=== PATIENT | female | born 1940 | race Caucasian/White ===

== ENCOUNTER 2017-03-03 19:15 | Inpatient (IN) | payer MEDICARE ==
[~2017-03-03] VITALS: Ht 177.8 cm; Wt 85.3 kg
[2017-03-03] MEDS ORDERED: LEVO500T90 PO (19:36)
[2017-03-03] MEDS ORDERED: ACET-2154 PO (19:36)
[2017-03-03] MEDS ORDERED: CHLO25CA22 PO (19:36)
[2017-03-03] MEDS ORDERED: METO25TA6 PO (19:36)
[2017-03-03] MEDS ORDERED: FLUO-120 PO (19:36)
[2017-03-03] MEDS ORDERED: LEVO88TA5 PO (19:36)
[2017-03-03] MEDS ORDERED: ARIP2TAB3 PO (19:36)
[2017-03-03] MEDS ORDERED: WARF2TAB6 PO (19:36)
[2017-03-03] MEDS ORDERED: ZOLP12.542 PO (19:36)
[2017-03-03] MEDS ORDERED: HYDR12.5 PO (19:36)
[2017-03-03] MEDS ORDERED: ATOR40TA PO (19:36)
--- NOTE | 2017-03-03 22:03 | NUR ---
Pt. admitted to GPS, under care of Dr. Rosa Belongs List completed
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
[2017-03-03 22:25] VITALS: BP 141/78
--- NOTE | 2017-03-04 07:22 | NUR ---
AVELINA FROM CRISIS TEAM CALLED TO [place] Pt. DR HUANG NOTIFIED Pt WANTED TO SIGN OUT AMA. ETA FOR CRISIS TEAM IS 60 MINUTES.
[2017-03-04 07:30] VITALS: BP 155/85
[2017-03-04 08:09] LABS: BASOPHILS % (AUTO) 0.5 % (0.0-2.0); EOSINOPHILS # (AUTO) 0.3 K/uL (0.0-0.7); EOSINOPHILS % (AUTO) 4.9 % (0.0-7.0); HEMOGLOBIN 13.4 G/DL (12.0-16.0); LYMPHOCYTES # (AUTO) 1.8 K/UL (0.8-4.8); LYMPHOCYTES % (AUTO) 35.3 % (20.5-51.5); MEAN CORPUSCULAR HEMOGLOBIN 30.7 UUG (27.0-31.0); MEAN CORPUSCULAR HGB CONC 34 g/dL (32.0-37.0); MEAN CORPUSCULAR VOLUME 89.7 FL (81.0-99.0); MONOCYTES # (AUTO) 0.4 K/UL (0.1-1.30); MONOCYTES % (AUTO) 7.8 % (0.0-11.0); NEUTROPHILS # (AUTO) 2.7 K/UL (1.8-8.9); NEUTROPHILS % (AUTO) 51.5 % (38.5-71.5); PLATELET COUNT (AUTO) 318 K/UL (150-450); RED BLOOD CELL COUNT(AUTO) 4.35 MIL/UL (4.2-5.4); WHITE BLOOD COUNT (AUTO) 5.2 K/UL (4.0-11.2)
[2017-03-04 09:09] LABS: THYROID STIMULATING HORMONE 4.959 mIU/mL (0.358-3.740)
[2017-03-04 09:55] LABS: ALANINE AMINOTRANSFERASE 30 U/L (14-59); ALKALINE PHOSPHATASE 71 U/L (50-136); ASPARTATE AMINOTRANSFERASE 20 U/L (15-37); BILIRUBIN,TOTAL 0.3 mg/dL (0.2-1.0); CARBON DIOXIDE 23 mmol/L (21-32); CHLORIDE 109 mmol/L (98-107); CHOLESTEROL 149 mg/dL (<200); GLUCOSE 100 mg/dL (74-106); HDL CHOLESTEROL 48 mg/dL (40-60); TOTAL PROTEIN, SERUM 7.6 g/dL (6.4-8.2); TRIGLYCERIDES 113 MG/DL (30-150); UREA NITROGEN, BLOOD 16 mg/dL (7-18)
[2017-03-04 14:57] LABS: *BILIRUBIN,URIN NEGATIVE (NEGATIVE); *BLOOD, URINE NEGATIVE (NEGATIVE); *CLARITY,URINE CLEAR (CLEAR); *COLOR,URINE YELLOW (YELLOW); *KETONES,URINE NEGATIVE (NEGATIVE); *PROTEIN,URINE NEGATIVE (NEGATIVE); *UROBILINOGEN,URINE 0.2 E.U./dl (NORMAL); LEUKOCYTE ESTERASE ,URINE TRACE (NEGATIVE); NITRITE, URINE NEGATIVE (NEGATIVE); UGLUCOSE NEGATIVE (NEGATIVE)
[2017-03-04 15:20] LABS: BACTERIA,URINE FEW /HPF (NONE SEEN); RBC,URINE 0-3 /HPF (0-3); SQUAMOUS EPITHELIAL CELL,UR FEW /HPF (NONE SEEN)
[2017-03-04 15:39] VITALS: BP 117/79
[2017-03-04 20:06] VITALS: BP 145/82
[2017-03-05 07:30] VITALS: BP 112/71
[2017-03-05 15:30] VITALS: BP 119/62
[2017-03-05 20:08] VITALS: BP 136/80
--- NOTE | 2017-03-05 22:00 | NUR ---
received to care, lying in bed, isolative, but pleasant upon approach. compliant with medications, and staff direction. PRN restoril given at 2125, for insomnia. as of 2199, she appears to be asleep. no distress noted. will continue to monitor closely.
--- NOTE | 2017-03-06 06:00 | NUR ---
slept 8.25 hours, total. continues to sleep. no distress noted.
[2017-03-06 07:30] VITALS: BP 133/76
[2017-03-06 07:45] LABS: BASOPHILS # (AUTO) 0.1 K/uL (0.0-8.0); EOSINOPHILS # (AUTO) 0.2 K/uL (0.0-0.7); EOSINOPHILS % (AUTO) 3.1 % (0.0-7.0); HEMATOCRIT 39.1 % (31.2-41.9); HEMOGLOBIN 13.5 g/dL (10.9-14.3); LYMPHOCYTES # (AUTO) 1.6 K/uL (20.0-40.0); LYMPHOCYTES % (AUTO) 31.4 % (20.5-51.5); MEAN CORPUSCULAR HEMOGLOBIN 31.5 uug (24.7-32.8); MEAN CORPUSCULAR HGB CONC 35 g/dL (32.3-35.6); MEAN CORPUSCULAR VOLUME 91.1 fL (75.5-95.3); MONOCYTES # (AUTO) 0.4 K/uL (2.0-10.0); MONOCYTES % (AUTO) 7.3 % (0.0-11.0); NEUTROPHILS # (AUTO) 2.9 K/uL (1.8-8.9); NEUTROPHILS % (AUTO) 57.2 % (38.5-71.5); PLATELET COUNT (AUTO) 297 K/uL (179-408)
[2017-03-06 08:26] LABS: THYROID STIMULATING HORMONE 4.802 mIU/mL (0.358-3.740)
[2017-03-06 08:36] LABS: ALANINE AMINOTRANSFERASE 53 U/L (14-59); ALKALINE PHOSPHATASE 73 U/L (50-136); ASPARTATE AMINOTRANSFERASE 48 U/L (15-37); BILIRUBIN,TOTAL 0.5 mg/dL (0.2-1.0); CARBON DIOXIDE 31 mmol/L (21-32); CHLORIDE 105 mmol/L (98-107); CREATININE 1.1 mg/dL (0.6-1.3); GLUCOSE 95 mg/dL (74-106); PHOSPHOROUS 3.3 mg/dL (2.5-4.9); TOTAL PROTEIN, SERUM 7.3 g/dL (6.4-8.2); UREA NITROGEN, BLOOD 16 mg/dL (7-18)
--- NOTE | 2017-03-06 12:31 | NUR ---
Initial DC Plan: Patient arrived from home [[address] [place] [address], [place] [address]; [phone]] and stated she would like to return upon discharge. Patient's daughter/DPOA of finances [[phone]] stated she would like patient to go to a assisted living facility. However, patient's daughter stated she will follow patient's wishes. SW will contact assisted living facilities to have as an option. SW will follow up with MD, patient, and patient's daughter to discuss most appropriate discharge plans. SW will form a safe and proper discharge.
[2017-03-06 15:15] VITALS: BP 126/75
--- NOTE | 2017-03-06 15:54 | NUR ---
DC Planning Note: TRISTIN faxed placement inquiries to [facility] [[phone]], [place] [[phone]], and [facility] [[phone]]. TRISTIN will follow up with facilities regarding inquiries.
--- NOTE | 2017-03-06 16:04 | NUR ---
1500: FOUND PT IN BATHROOM IN A SITTING POSITION NEXT TO THE TOILET. PT STATED THAT SHE WAS SLIDING FROM THE TOILET BECAUSE THE TOILET IS TOO SHORT. ASSISTED BACK TO THE BED. VS TAKEN 126/75, 97.4, 69,18, 98%. NO C/O PAIN OR DISCOMFORT. NO BRUISES, NO ABRASION, OR SCRATCHES. DENIES ANY HEAD INJURY. QA SOFTWARE TESTER PRAVEEN NOTIFIED WITH NO NEW ORDERS. WILL CONTINUE TO MONITOR.
[2017-03-06 20:24] VITALS: BP 98/47
[2017-03-06 20:35] VITALS: BP 101/59
[2017-03-06 21:30] VITALS: BP 136/72
--- NOTE | 2017-03-06 22:00 | NUR ---
received to care, lying in bed, isolative, but pleasant upon approach. compliant with medications and staff direction. PRN restoril given at 2135, for insomnia. as of 2199, she remains awake, but appears to be falling asleep. no distress noted. will continue to monitor closely.
--- NOTE | 2017-03-06 22:30 | NUR ---
appears to be asleep.
--- NOTE | 2017-03-07 02:00 | NUR ---
pt was found on the floor, next to the toilet. she stated that she was trying to get to the toilet, but did not make it in time, and slipped on her urine, on the floor. she was found sitting on her buttocks. she denied any pain or injury. full body check was done, and no injury was noted. pt was assisted to the toilet, then back to bed, with bed alarm on. will continue to monitor closely. Addendum: 03/07/17 at 0215 by SANCHEZ SIMPSON LVN vital signs 127/70, hr 61, resp 18, temp 98.0, sa os 95%
[2017-03-07 02:10] VITALS: BP 127/70
--- NOTE | 2017-03-07 06:00 | NUR ---
slept 8.0 hours, total. continues to sleep. no distress noted.
[2017-03-07 07:30] VITALS: BP 124/69
[2017-03-07 16:00] VITALS: BP 144/81
[2017-03-07 19:45] VITALS: BP 130/75
[2017-03-07 20:00] VITALS: BP 112/81
--- NOTE | 2017-03-07 22:00 | NUR ---
received to care, lying in bed, isolative, but pleasant upon approach. 1:1 sitter remains at side, for safety. compliant with medications and staff direction. as of 0, she appears to be asleep. no distress noted. will continue to monitor closely.
--- NOTE | 2017-03-08 06:00 | NUR ---
slept 8.75 hours, total. continues to sleep. no distress noted. sitter remains at side, for safety.
[2017-03-08 07:30] VITALS: BP 138/68
[2017-03-08 09:20] VITALS: BP 138/68
--- NOTE | 2017-03-08 10:37 | NUR ---
DC Note: Patient will be discharged to [facility] [[address] [place] [address]; [phone]] via ambulance at 1pm. SW spoke with CJ at [facility] to confirm discharge plans. Patient is aware and agreeable to discharge plans. Patient's daughter Kaity Woodson [[phone]] is aware and agreeable to discharge plans. Patient will follow up Dr. Chacon (New Car Get Ready Mechanic) and Dr. Garcia (Psychiatrist). Patient was provided a brief substance abuse intervention and was provided referrals for [facility] [ ], [facility] [ ], and [facility] [ ].
--- NOTE | 2017-03-08 13:53 | NUR ---
Pt D/C to [facility] by ambulance. Pt D/C with all belongings, POMS, prescriptions, and Exit care information packet. Pt is calm, cooperative, v/s stable,skin intact, AOx3, denies suicidal ideation. Pt contracted for safety inside and outside of the hospital. Report was given to Staff Hue at [facility].
== END 2017-03-08 14:30 | DRG 885 ==
LOC: ER 19:15 → GPS 21:58
PROVIDERS: ADMIT Psychiatry & Neurology Psychiatry; ATTEND Internal Medicine
DX: F31.9 Bipolar disorder, unspecified (principal); E88.09 Other disorders of plasma-protein metabolism, not elsewhere classified; I48.2 Chronic atrial fibrillation; N39.0 Urinary tract infection, site not specified; F31.30 Bipolar disorder, current episode depressed, mild or moderate severity, unspecified; Z79.899 Other long term (current) drug therapy; T14.90XS Injury, unspecified, sequela; Z79.01 Long term (current) use of anticoagulants; E66.9 Obesity, unspecified; Z68.27 Body mass index [BMI] 27.0-27.9, adult; R35.0 Frequency of micturition; M16.11 Unilateral primary osteoarthritis, right hip; Z91.81 History of falling; Z91.14 Patient's other noncompliance with medication regimen; Z87.440 Personal history of urinary (tract) infections; E78.5 Hyperlipidemia, unspecified; M25.561 Pain in right knee; E05.90 Thyrotoxicosis, unspecified without thyrotoxic crisis or storm; E02 Subclinical iodine-deficiency hypothyroidism; R74.0 Nonspecific elevation of levels of transaminase and lactic acid dehydrogenase [LDH]
CPT/HCPCS: 36415; 71010; 73502; 82306; 83735; 84100; 84443; 85025; 85610; 87086; 93005; A4663